=== PATIENT | male | born 1940 | race Caucasian/White ===

== ENCOUNTER → 2018-03-14 12:06 | Outpatient (CLI) | payer OTHER, MEDICARE, SELFPAY ==
[2018-03-14 14:38] LABS: AST(SGOT) 14 U/L (15-37); Alanine Aminotransfer ALT/SGPT 25 U/L (16-61); Albumin, Serum 3.4 g/dL (3.2-5.0); Alkaline Phosphatase 78 U/L (45-117); Anion Gap 10 (5-15); BUN 13 mg/dL (7-18); BUN/Creat Ratio 17.8 RATIO (10-20); Calcium,Total 9.6 mg/dL (8.5-10.1); Chloride 107 mmol/L (98-107); Cholesterol 128 mg/dL (200); Creatinine, Serum 0.73 mg/dL (0.70-1.30); EST Glomerular Filtration Rate 111 mL/min (>60); Est Glom Filt Rate - Afr Amer 135 mL/min (>60); Globulin 3.4 g/dL (2.2-4.2); Glucose 89 mg/dL (74-106); High Density Lipoprotein 45 mg/dL; Potassium 4.2 mmol/L (3.5-5.1); Protein, Total 6.8 g/dL (6.4-8.2); Sodium Level 144 mmol/L (136-145); Thyroid Stim Hormone (TSH) 2.18 uIU/mL (0.358-3.74); Triglycerides 77 mg/dL; Very Low Density Lipoprotein 15 mg/dL (5-40)
== END ==
PROVIDERS: Family Provider Family Medicine; PCP Family Medicine; Visit Provider Family Medicine
DX: E11.9 Type 2 diabetes mellitus without complications (principal)
CPT/HCPCS: 36415; 80053; 80061; 84403; 84443

== ENCOUNTER → 2018-10-31 | Outpatient (CLI) | payer OTHER, MEDICARE, SELFPAY ==
[2018-10-31 13:37] LABS: ALB/GLOB Ratio 1.2 RATIO (0.9-2.4); AST(SGOT) 19 U/L (15-37); Alanine Aminotransfer ALT/SGPT 27 U/L (16-61); Albumin, Serum 3.6 g/dL (3.2-5.0); Alkaline Phosphatase 73 U/L (45-117); Anion Gap 6 (5-15); BUN 11 mg/dL (7-18); BUN/Creat Ratio 16.4 RATIO (10-20); Calcium,Total 9.5 mg/dL (8.5-10.1); Chloride 108 mmol/L (98-107); Cholesterol 112 mg/dL (200); Creatinine, Serum 0.67 mg/dL (0.70-1.30); EST Glomerular Filtration Rate 123 mL/min (>60); Est Glom Filt Rate - Afr Amer 148 mL/min (>60); Globulin 2.9 g/dL (2.2-4.2); Glucose 110 mg/dL (74-106); High Density Lipoprotein 51 mg/dL; Potassium 3.8 mmol/L (3.5-5.1); Protein, Total 6.5 g/dL (6.4-8.2); Sodium Level 142 mmol/L (136-145); Triglycerides 84 mg/dL; Very Low Density Lipoprotein 17 mg/dL (5-40)
== END | disposition home or self-care (01) ==
LOC: MFPLAB 09:38
PROVIDERS: PCP Family Medicine; Visit Provider Family Medicine
DX: E11.9 Type 2 diabetes mellitus without complications (principal)
CPT/HCPCS: 36415; 80053; 80061

== ENCOUNTER → 2019-08-28 | Outpatient (CLI) | payer OTHER, MEDICARE, SELFPAY ==
[2019-08-28 10:51] LABS: ALB/GLOB Ratio 0.9 RATIO (0.9-2.4); AST(SGOT) 14 U/L (15-37); Alanine Aminotransfer ALT/SGPT 29 U/L (16-61); Albumin, Serum 3.4 g/dL (3.2-5.0); Alkaline Phosphatase 75 U/L (45-117); Anion Gap 4 (5-15); BUN 19 mg/dL (7-18); BUN/Creat Ratio 24.6 RATIO (10-20); Calcium,Total 9.7 mg/dL (8.5-10.1); Chloride 107 mmol/L (98-107); Creatinine, Serum 0.77 mg/dL (0.70-1.30); EST Glomerular Filtration Rate 104 mL/min (>60); Est Glom Filt Rate - Afr Amer 126 mL/min (>60); Globulin 3.6 g/dL (2.2-4.2); Glucose 115 mg/dL (74-106); Potassium 4.2 mmol/L (3.5-5.1); Sodium Level 140 mmol/L (136-145); Thyroid Stim Hormone (TSH) 3.25 uIU/mL (0.358-3.74)
== END | disposition home or self-care (01) ==
LOC: MFPLAB 08:45
PROVIDERS: PCP Family Medicine; Referring Provider Family Medicine; Visit Provider Family Medicine
DX: E11.9 Type 2 diabetes mellitus without complications (principal)
CPT/HCPCS: 36415; 80053; 84443

== ENCOUNTER → 2020-04-22 | Outpatient (CLI) | payer OTHER, MEDICARE, SELFPAY ==
[2020-04-22 10:04] LABS: ALB/GLOB Ratio 0.9 RATIO (0.9-2.4); AST(SGOT) 11 U/L (15-37); Alanine Aminotransfer ALT/SGPT 24 U/L (16-61); Albumin, Serum 3.4 g/dL (3.2-5.0); Alkaline Phosphatase 93 U/L (45-117); Anion Gap 8 (5-15); BUN 20 mg/dL (7-18); BUN/Creat Ratio 29.2 RATIO (10-20); Calcium,Total 9.6 mg/dL (8.5-10.1); Chloride 107 mmol/L (98-107); Cholesterol 131 mg/dL (200); Creatinine, Serum 0.68 mg/dL (0.70-1.30); EST Glomerular Filtration Rate 119 mL/min (>60); Est Glom Filt Rate - Afr Amer 144 mL/min (>60); Globulin 3.6 g/dL (2.2-4.2); Glucose 116 mg/dL (74-106); High Density Lipoprotein 61 mg/dL; Sodium Level 141 mmol/L (136-145); Triglycerides 74 mg/dL; Very Low Density Lipoprotein 15 mg/dL (5-40)
== END | disposition home or self-care (01) ==
LOC: MFPLAB 08:19
PROVIDERS: PCP Family Medicine; Visit Provider Family Medicine
DX: E11.9 Type 2 diabetes mellitus without complications (principal)
CPT/HCPCS: 36415; 80053; 80061

== ENCOUNTER → 2020-09-23 09:01 | Outpatient (CLI) | payer OTHER, MEDICARE, SELFPAY ==
[2020-09-23 10:44] LABS: ALB/GLOB Ratio 1.1 RATIO (0.9-2.4); AST(SGOT) 18 U/L (15-37); Alanine Aminotransfer ALT/SGPT 29 U/L (16-61); Albumin, Serum 3.5 g/dL (3.2-5.0); Alkaline Phosphatase 70 U/L (45-117); Anion Gap 7 (5-15); BUN 20 mg/dL (7-18); BUN/Creat Ratio 29.3 RATIO (10-20); Calcium,Total 9.6 mg/dL (8.5-10.1); Chloride 108 mmol/L (98-107); Creatinine, Serum 0.68 mg/dL (0.70-1.30); EST Glomerular Filtration Rate 120 mL/min (>60); Est Glom Filt Rate - Afr Amer 145 mL/min (>60); Globulin 3.3 g/dL (2.2-4.2); Glucose 139 mg/dL (74-106); Potassium 3.8 mmol/L (3.5-5.1); Protein, Total 6.8 g/dL (6.4-8.2); Sodium Level 141 mmol/L (136-145); Thyroid Stim Hormone (TSH) 1.51 uIU/mL (0.358-3.74)
== END ==
PROVIDERS: PCP Family Medicine; Visit Provider Family Medicine
DX: E11.9 Type 2 diabetes mellitus without complications (principal)
CPT/HCPCS: 36415; 80053; 84443

== ENCOUNTER 2021-10-21 09:50 | Outpatient (CLI) | payer OTHER, MEDICARE, SELFPAY ==
[2021-10-21 12:20] LABS: Vitamin B12 455 pg/mL (211-911)
[2021-10-21 12:35] LABS: Hemoglobin A1c 6.4 % (3.8-5.6)
[2021-10-21 12:48] LABS: ALB/GLOB Ratio 1.1 RATIO (0.9-2.4); AST(SGOT) 11 U/L (15-37); Alanine Aminotransfer ALT/SGPT 25 U/L (16-61); Albumin, Serum 3.7 g/dL (3.2-5.0); Alkaline Phosphatase 72 U/L (45-117); Anion Gap 7 (5-15); BUN 15 mg/dL (7-18); BUN/Creat Ratio 19.7 RATIO (10-20); Calcium,Total 10.1 mg/dL (8.5-10.1); Chloride 109 mmol/L (98-107); Creatinine, Serum 0.76 mg/dL (0.70-1.30); EST Glomerular Filtration Rate 105 mL/min (>60); Est Glom Filt Rate - Afr Amer 127 mL/min (>60); Globulin 3.3 g/dL (2.2-4.2); Glucose 116 mg/dL (74-106); Potassium 4.1 mmol/L (3.5-5.1); Sodium Level 140 mmol/L (136-145); Thyroid Stim Hormone (TSH) 1.84 uIU/mL (0.358-3.74)
== END 2021-10-21 23:59 | disposition home or self-care (01) ==
LOC: MFPLAB 09:51 → MTLAB 10:06
PROVIDERS: PCP Family Medicine; Visit Provider Family Medicine
DX: E11.9 Type 2 diabetes mellitus without complications (principal)
CPT/HCPCS: 36415; 80053; 82607; 83036; 84443

== ENCOUNTER → 2022-10-12 | Outpatient (CLI) | payer OTHER, MEDICARE, SELFPAY ==
[2022-10-12 10:16] LABS: ALB/GLOB Ratio 1.1 RATIO (0.9-2.4); AST(SGOT) 15 U/L (15-37); Alanine Aminotransfer ALT/SGPT 25 U/L (16-61); Albumin, Serum 3.5 g/dL (3.2-5.0); Alkaline Phosphatase 73 U/L (45-117); BUN 25 mg/dL (7-18); BUN/Creat Ratio 31.6 RATIO (10-20); Calcium,Total 9.8 mg/dL (8.5-10.1); Creatinine, Serum 0.79 mg/dL (0.70-1.30); EST Glomerular Filtration Rate 100 mL/min (>60); Est Glom Filt Rate - Afr Amer 121 mL/min (>60); Globulin 3.3 g/dL (2.2-4.2); Glucose 123 mg/dL (74-106); Protein, Total 6.8 g/dL (6.4-8.2)
[2022-10-12 10:17] LABS: Anion Gap 0 (5-15); Chloride 108 mmol/L (98-107); Potassium 4.5 mmol/L (3.5-5.1); Sodium Level 136 mmol/L (136-145)
== END | disposition home or self-care (01) ==
LOC: MFPLAB 08:27
PROVIDERS: PCP Family Medicine; Visit Provider Family Medicine
DX: E11.9 Type 2 diabetes mellitus without complications (principal)
CPT/HCPCS: 36415; 80053; 84443

== ENCOUNTER 2022-11-28 21:26 | Emergency (ER) | payer OTHER, MEDICARE, SELFPAY ==
[2022-11-28 21:27] VITALS: BP 184/64; PULSE 58; RESP 16; TEMP 36.6; O2SAT 93; BMI 41.3
--- NOTE | 2022-11-28 21:54 | EDS_ITS ---
HPI History of Present Illness Chief Complaint: Back Informant: patient Onset/Context/Timing Onset: Yesterday Injury: fall Timing: Continuous Quality: Sharp Location: Lumbar Worsened by: improves with Movement and Bending Relieved by: Nothing Associated Symptoms Associated Symptoms: Fever and Constipation; Negative for Numbness, Tingling, Radiation to Right Leg, Radiation to Left Leg, Abdominal Pain, Dysuria, Unable to Ambulate, Unable to Transfer, Urinary Retention, Urinary Incontinence or Fecal Incontinence Narrative Narrative: Patient presents with low back pain that began yesterday after a fall. Patient states he was bending forward when he lost his balance and fell. Patient states he has been falling more frequently over the last few days. Patient states this has been worse whenever he bends forward. Patient states he loses his balance when he bends forward. Patient describes his back pain as sharp and constant. Patient states his back pain is worse with movement and with tensing up. Patient states he is having difficulty moving his bowels due to the pain from tensing up. Patient denies any incontinence of urine or stool. Patient thinks he might of had a fever recently. Patient denies any paresthesias or weakness. Patient denies any saddle anesthesia. Patient denies any radiation of his pain down his lower extremities. [facility] Medical History (Updated 11/28/22 @ 23:[address] Cain Perrin DO) Diabetes mellitus Home Medications hydrocodone-acetaminophen 5-325mg 5mg-325mg 1 tab PO Q6H PRN PRN Pain 3 days #10 TABLETS 11/28/22 [Rx Last Taken Unknown] Allergy/AdvReac Type Severity Reaction Status Date / Time Sulfa (Sulfonamide Allergy Hives Verified 11/28/22 21:30 Antibiotics) Surgical History (Updated 11/28/22 @ 21:[address] Cain Perrin DO) History of surgical amputation of finger of left hand Social History Smoking Status: Never smoker ROS ROS ED Constitutional Constitutional ED: Reports fever(s) and subjective; Denies chills Eyes Eyes: Denies blurry vision or change in vision ENT ENT ED: Denies rhinorrhea or sore throat Cardiovascular Cardiovascular: Denies chest pain or palpitations Respiratory/Chest Respiratory/Chest: Reports cough; Denies dyspnea Gastrointestinal Gastrointestinal: Denies nausea or vomiting Genitourinary Genitourinary ED: Denies dysuria or hematuria Musculoskeletal Musculoskeletal: Reports back pain; Denies neck pain Integumentary Denies abscess or rash Neurologic Neurologic: Reports headache(s); Denies weakness Allergic/Immunologic Allergic/Immunologic ED: Denies mouth swelling or urticaria EXAM Physical Exam Const Vital Signs: 11/28/22 21:27 Temperature 97.8 F Temperature Source Temporal Pulse Rate 58 L Respiratory Rate 16 Blood Pressure 184/64 H Blood Pressure Mean 104 Pulse Ox 93 Oxygen Delivery Method Room Air Positive well nourished, well developed and obese General Appearance ED: well developed and NAD Nutritional Appearance: obese HEENT Reports moist mucous membranes Resp normal respiratory effort and clear to auscultation bilaterally Cardio regular rate and regular rhythm GI normal to inspection, nondistended, normoactive bowel sounds, soft to palpation, non-tender and non-distended Back/Spine Back/Spine Narrative: There is tenderness over the lumbar spine and left lumbar paraspinal muscles. There is mild midline tenderness. There is no bony crepitance or step-off. Range of motion was limited in all motions of the lumbar spine secondary to pain. Strength is 5/5 bilaterally in the lower extremities. There are no sensory deficits noted. Straight leg raises were negative bilaterally. Pedal pulses are equal bilaterally. Capillary refill was less than 2 seconds in all digits. Lumbar Spine / Lower Back: ROM limited and straight leg raise negative bilaterally Extremity Extremity Narrative: There is some dried blood noted over the nailbed of the right great toe. There is mild tenderness over the nail plate of the right great toe. There is no obvious deformity. There is good range of motion of the right great toe. Neuro oriented x3 and no sensory deficits noted Sensorium / Orientation: alert Motor Exam: strength 5/5 throughout MDM MDM MDM Narrative Medical decision making narrative: Differential diagnosis includes lumbar compression fracture, spondylolisthesis, and lumbar strain. X-rays of the lumbar spine will be obtained to assess for fracture and spondylolisthesis. Radiography X-Ray: LS SPine, Read by ED Physician, Read by Radiologist, GUILLERMINA, Spurring and Compression Diagnostic Testing: Clinical Impression(s) from Imaging Studies Lumbar Spine X-Ray 11/28/22 22:25 IMPRESSION: No acute fracture identified. Lumbar compression deformity at L1 and degenerative changes are similar to prior study October 09, 2014. Electronically Signed: Korey Fong MD at 22:44 EDT , X-rays of the lumbar spine were obtained. There are 2 views. On my independent interpretation, there is a mild compression of the L1 vertebral body. There are some degenerative changes noted. Radiologist also interpreted the x-rays and n oted that the compression deformity of L1 was similar to a prior study from 10/09/2014. Treatment and Re-Evaluation Narrative: Patient was given a dose of morphine here. The right great toe was cleaned and dressed with a bacitracin dressing. Patient states he would feel better if he was able to move his bowels. Because of this, patient was given a soapsuds enema here. Patient will be observed until he is able to move his bowels. Patient is comfortable with this plan. Patient was instructed to take [id number] stool softeners and/or laxatives. Patient was given a prescription for a short course of [place] for severe pain. Patient was instructed to start with Tylenol and ibuprofen for his pain. Patient was in structed to follow-up with his primary care physician in 5 to 7 days. Patient understood and was agreeable with the plan. All questions were answered. Discharge Plan Triage Chief Complaint: Back ED Provider: Cain Perrin Dx/Rx/DC Orders Clinical Impression: Low back pain, Constipation Instructions: ED Back Sprain/Strain, ED Constipation (Adult) Prescriptions: New hydrocodone-acetaminophen [hydrocodone-acetaminophen] 5-325 mg tablet 1 tab PO Q6H PRN PRN (Reason: Pain) 3 Days Qty: 10 0RF Primary Care Provider: Sean Freitas Referrals: Sean Freitas MD [Primary Care Provider] - 5-7 Days Disposition Disposition: Home, Self Care
[2022-11-28] MEDS: Morphine 4 MG/ML Syringe IM (22:01)
--- NOTE | 2022-11-28 22:25 | RAD_ITS ---
INDICATION: Injury/Pain EXAMINATION/TECHNIQUE: X-RAY - XR Spine Lumbar 2 or 3 Views COMPARISON: October 09, 2014. FINDINGS: Compression deformity at L1. This appears chronic and is mild to moderate. There may also be some slight vertebral body narrowing at T11 which appears chronic. Slight retrolisthesis of L1 on L2 and L2 on L3. Mild disc narrowing L1/L2 and mild to moderate narrowing L2/L3. Moderate narrowing L4/L5 and L5/S1. Moderate multilevel anterior osteophyte formation is appreciated. There is multilevel facet arthropathy throughout the lumbar spine which probably contributes to bony foraminal narrowing. SI joint degenerative changes are present. Nonspecific bowel gas pattern. A few distended loops of bowel are identified. RAD/Lumbar Spine 2 or 3 Views IMPRESSION: No acute fracture identified. Lumbar compression deformity at L1 and degenerative changes are similar to prior study October 09, 2014. Electronically Signed: Korey Fong MD at 22:44 EDT ,
== END 2022-11-29 03:01 | disposition home or self-care (01) ==
PROVIDERS: Emergency Provider Emergency Medicine; PCP Family Medicine; Referring Provider Emergency Medicine; Visit Provider Emergency Medicine
DX: K59.00 Constipation, unspecified (principal); E11.9 Type 2 diabetes mellitus without complications; E66.9 Obesity, unspecified
CPT/HCPCS: 72100; 96372; 99285

== ENCOUNTER → 2023-10-04 | Outpatient (CLI) | payer OTHER, MEDICARE, SELFPAY ==
[2023-10-04 10:31] LABS: Vitamin B12 519 pg/mL (211-911)
[2023-10-04 10:51] LABS: ALB/GLOB Ratio 1.1 RATIO (0.9-2.4); AST(SGOT) 17 U/L (15-37); Alanine Aminotransfer ALT/SGPT 28 U/L (16-61); Albumin, Serum 3.4 g/dL (3.2-5.0); Alkaline Phosphatase 69 U/L (45-117); Anion Gap 6 (5-15); BUN 20 mg/dL (7-18); BUN/Creat Ratio 26.6 RATIO (10-20); Calcium,Total 9.7 mg/dL (8.5-10.1); Chloride 111 mmol/L (98-107); Cholesterol 135 mg/dL (200); Creatinine, Serum 0.75 mg/dL (0.70-1.30); EST Glomerular Filtration Rate 106 mL/min (>60); Est Glom Filt Rate - Afr Amer 128 mL/min (>60); Globulin 3.2 g/dL (2.2-4.2); Glucose 133 mg/dL (74-106); High Density Lipoprotein 57 mg/dL; Potassium 4.2 mmol/L (3.5-5.1); Protein, Total 6.6 g/dL (6.4-8.2); Sodium Level 142 mmol/L (136-145); Thyroid Stim Hormone (TSH) 2.45 uIU/mL (0.358-3.74); Triglycerides 75 mg/dL; Very Low Density Lipoprotein 15 mg/dL (5-40)
== END | disposition home or self-care (01) ==
LOC: MFPLAB 08:36 → MTLAB 09:01
PROVIDERS: PCP Family Medicine; Referring Provider Family Medicine; Visit Provider Family Medicine
DX: E11.9 Type 2 diabetes mellitus without complications (principal)
CPT/HCPCS: 36415; 80053; 80061; 82607; 84443

== ENCOUNTER → 2024-04-04 | Outpatient (CLI) | payer OTHER, SELFPAY ==
[2024-04-04 10:26] LABS: Cholesterol 126 mg/dL (200); High Density Lipoprotein 57 mg/dL; Triglycerides 72 mg/dL; Very Low Density Lipoprotein 14 mg/dL (5-40)
== END | disposition home or self-care (01) ==
LOC: MFPLAB 08:47
PROVIDERS: PCP Family Medicine; Visit Provider Family Medicine
DX: E11.9 Type 2 diabetes mellitus without complications (principal)
CPT/HCPCS: 36415; 80061

== ENCOUNTER → 2024-06-07 | Outpatient (CLI) | payer OTHER, MEDICARE, SELFPAY ==
[2024-06-07 11:05] LABS: ALB/GLOB Ratio 1.1 RATIO (0.9-2.4); AST(SGOT) 13 U/L (15-37); Alanine Aminotransfer ALT/SGPT 30 U/L (16-61); Albumin, Serum 3.4 g/dL (3.2-5.0); Alkaline Phosphatase 57 U/L (45-117); Anion Gap 3 (5-15); BUN 20 mg/dL (7-18); BUN/Creat Ratio 29.4 RATIO (10-20); Calcium,Total 9.6 mg/dL (8.5-10.1); Chloride 112 mmol/L (98-107); Cholesterol 114 mg/dL (200); Creatinine, Serum 0.68 mg/dL (0.70-1.30); EST Glomerular Filtration Rate 119 mL/min (>60); Est Glom Filt Rate - Afr Amer 144 mL/min (>60); Glucose 100 mg/dL (74-106); High Density Lipoprotein 51 mg/dL; Potassium 3.8 mmol/L (3.5-5.1); Protein, Total 6.4 g/dL (6.4-8.2); Sodium Level 142 mmol/L (136-145); Triglycerides 77 mg/dL; Very Low Density Lipoprotein 15 mg/dL (5-40)
== END | disposition home or self-care (01) ==
LOC: MTLAB 08:56
PROVIDERS: PCP Family Medicine; Referring Provider Family Medicine; Visit Provider Family Medicine
DX: E11.9 Type 2 diabetes mellitus without complications (principal)
CPT/HCPCS: 36415; 80053; 80061

== ENCOUNTER → 2024-11-21 | Outpatient (CLI) | payer MEDICARE, OTHER, SELFPAY ==
[2024-11-21 10:42] LABS: Hemoglobin 14.4 g/dL (13.0-16.5); Mean Corp Hgb Conc 31.3 g/dL (32-36); Mean Corpuscular Hgb 28.9 pg (27.0-32.0); Mean Corpuscular Volume 92.4 fL (80-94); Mean Platelet Vol. 11.2 fl (6.2-12.0); Platelet Count 288 K/mm3 (150-450); RBC Distribution Width CV 14.2 % (11.6-14.6); RBC Distribution Width SD 48.2 fl (35.1-43.9); Red Blood Count 4.98 M/mm3 (4.6-6.2)
[2024-11-21 11:26] LABS: Anion Gap 11 (5-15); BUN 12 mg/dL (4-19); BUN/Creat Ratio 15.9 RATIO (10-20); Calcium,Total 10.5 mg/dL (7.6-11.0); Carbon Dioxide 24.5 mmol/L (21.0-32.0); Chloride 105 mmol/L (98-108); Creatinine, Serum 0.74 mg/dL (0.70-1.20); EST Glomerular Filtration Rate 90 (>60); Glucose 159 mg/dL (70-99); Magnesium 2.2 mg/dL (1.5-2.2); Potassium 4.3 mmol/L (3.3-5.1); Sodium Level 140 mmol/L (133-145); Vitamin B12 799 pg/mL (180-914)
== END | disposition home or self-care (01) ==
LOC: MFPLAB 09:05
PROVIDERS: PCP Family Medicine; Referring Provider Family Medicine; Visit Provider Family Medicine
DX: E11.59 Type 2 diabetes mellitus with other circulatory complications (principal); I48.91 Unspecified atrial fibrillation
CPT/HCPCS: 36415; 80048; 82607; 83735; 84443; 85027

== ENCOUNTER → 2024-12-29 | Outpatient (CLI) | payer MEDICARE, OTHER, SELFPAY ==
--- NOTE | 2024-12-29 13:51 | ECHOD_ITS ---
Reason For Study Reason For Study: ATRIAL FIBRILLATION Procedure This was a 2D Doppler, Color Flow transthoracic echocardiogram. Exam performed in department. Left Ventricle Normal size and thickness. The LV ejection fraction is 60 %. Unable to assess diastolic dysfunction due to arrhythmia. Right Ventricle Normal right ventricle. Atria The left atrium is severely enlarged. The right atrium is mildly enlarged. Mitral Valve Mild mitral annular calcification. Trivial mitral valve insufficiency. Tricuspid Valve Trivial tricuspid valve insufficiency. Right ventricular systolic pressure estimated to be 40 mmHg. Aortic Valve Trisinus/trileaflet aortic valve. Pulmonic Valve The pulmonic valve is not well visualized. Great Vessels Normal sized aortic root. Pericardium/Pleural No pericardial effusion. MMode/2D Measurements & Calculations LVIDd: 5.4 cm IVSd: 1.0 cm Ao root diam: 3.3 cm LVIDs: 3.7 cm LVPWd: 1.0 cm LA dimension: 4.9 cm RVDd: 4.2 cm FS: 31.2 % LAV(MOD-bp): 91.0 ml LVAd ap4: 31.1 cm2 SV(MOD-sp4): 62.7 ml LAV(MOD-bp) Indexed: 40.0 ml/m2 LVLd ap4: 7.8 cm SI(MOD-sp4): 27.6 ml/m2 LAV(MOD-sp2): 87.1 ml EDV(MOD-sp4): 104.2 ml LAV(MOD-sp4): 86.3 ml EDV(sp4-el): 105.5 ml LVAs ap4: 17.6 cm2 LVLs ap4: 6.7 cm ESV(MOD-sp4): 41.6 ml ESV(sp4-el): 39.4 ml EF(MOD-sp4): 60.1 % EF(sp4-el): 62.6 % SV(sp4-el): 66.1 ml LA A4 area: 28.2 cm2 LA dimension(2D): 3.5 cm RA A4 area: 25.6 cm2 TAPSE: 2.1 cm Doppler Measurements & Calculations MV E max cl: 116.1 cm/sec Ao V2 max: 126.0 cm/sec LV V1 max: 102.1 cm/sec Ao max P.4 mmHg LV V1 max P.2 mmHg PA V2 max: 93.6 cm/sec TR max cl: 297.3 cm/sec TR max P.4 mmHg ECHO/Echo Complete Interpretation Summary The LV ejection fraction is 60 %. Unable to assess diastolic dysfunction due to arrhythmia. The left atrium is severely enlarged. The right atrium is mildly enlarged. Mild mitral annular calcification. Right ventricular systolic pressure estimated to be 40 mmHg. Ordering Physician: Trenton Freitas Referring Physician: Trenton Freitas Performed By: Bertha Heath RDCS
== END | disposition home or self-care (01) ==
LOC: CVS 13:38
PROVIDERS: PCP Family Medicine; Referring Provider Family Medicine; Visit Provider Family Medicine
DX: R94.31 Abnormal electrocardiogram [ECG] [EKG] (principal); I48.91 Unspecified atrial fibrillation
CPT/HCPCS: 93306

== ENCOUNTER → 2025-02-02 | Outpatient (CLI) | payer MEDICARE, OTHER, SELFPAY ==
[2025-02-02 13:40] LABS: Hematocrit 43.5 % (40-54); Hemoglobin 14.0 g/dL (13.0-16.5); Mean Corp Hgb Conc 32.2 g/dL (32-36); Mean Corpuscular Volume 91.2 fL (80-94); Mean Platelet Vol. 11.1 fl (6.2-12.0); Platelet Count 263 K/mm3 (150-450); RBC Distribution Width CV 14.1 % (11.6-14.6); RBC Distribution Width SD 47.4 fl (35.1-43.9); Red Blood Count 4.77 M/mm3 (4.6-6.2); White Blood Count 8.4 K/mm3 (4.4-11.0)
[2025-02-02 14:39] LABS: Anion Gap 11 (5-15); BUN 16 mg/dL (4-19); BUN/Creat Ratio 22.9 RATIO (10-20); Calcium,Total 10.1 mg/dL (7.6-11.0); Carbon Dioxide 21.0 mmol/L (21.0-32.0); Chloride 106 mmol/L (98-108); Glucose 95 mg/dL (70-99); Potassium 4.7 mmol/L (3.3-5.1)
== END | disposition home or self-care (01) ==
LOC: LAB 11:34
PROVIDERS: PCP Family Medicine; Referring Provider Internal Medicine Cardiovascular Disease; Visit Provider Internal Medicine Cardiovascular Disease
DX: I10 Essential (primary) hypertension (principal); I48.91 Unspecified atrial fibrillation; R00.1 Bradycardia, unspecified
CPT/HCPCS: 36415; 71046; 80048; 85027

== ENCOUNTER 2025-02-07 13:38 | Observation (INO) | payer MEDICARE, OTHER, SELFPAY ==
[2025-02-05 09:59] LABS: Mucous, Urine 0 SEEN /hpf (<or=2+); Red Blood Cells-Urine 0 SEEN /hpf (0-5)
[2025-02-05 10:46] LABS: Color, Urine Yellow (Yellow); Glucose, Dipstick Normal (Normal); Ketone-Dipstick Negative (Negative); Leukocyte Esterase-Dipstick Negative /ul (Negative); Nitrite-Dipstick Negative (Negative); Occult Blood-Urine Negative /ul (Negative); Protein-Dipstick 15 mg/dl (Negative); Specific Gravity, Urine 1.020 (1.002-1.030); Urine Bilirubin Dipstick Negative (Negative)
[2025-02-05 10:57] LABS: Squamous Epithelial Cells - UA 0-5 SEEN /hpf (0-5)
[2025-02-06 08:36] VITALS: BMI 36.9
[2025-02-07] VITALS (13 sets, daily range): BP systolic 114–149; BP diastolic 49–81; PULSE 69–74; RESP 16–22; TEMP 36.2–36.6; O2SAT 92–99
[2025-02-07] MEDS: Budesonide Respules 0.5 MG/2 ML AMPUL.NEB. INHALATION (19:55)
[2025-02-07] MEDS: Albuterol 2.5 MG/3 ML VIAL.NEB. INHALATION (19:55)
[2025-02-08 03:34] VITALS: BP 128/70; PULSE 70; RESP 18; TEMP 36.1; O2SAT 98
--- NOTE | 2025-02-08 04:50 | RAD_ITS ---
PROCEDURE: CHEST 3 VIEW 02/08/2025 REASON FOR EXAM: POST PERMANENT ICD/PACEMAKER TECHNIQUE: CHEST 3 VIEW COMPARISON: 02/02/2025 FINDINGS: Rotated and lordotic patient. Unremarkable pacer. Upper limits of normal heart size. Calcified aorta. Limited retrocardiac visibility. Well inflated and clear right lung. RAD/Chest 3 View IMPRESSION: No definite acute chest findings. Limited left base visibility. Unremarkable pacer, without pneumothorax. Reading Location: [facility]
[2025-02-08] MEDS: Budesonide Respules 0.5 MG/2 ML AMPUL.NEB. INHALATION (07:27)
[2025-02-08] MEDS: Albuterol 2.5 MG/3 ML VIAL.NEB. INHALATION (07:27)
[2025-02-08 07:29] VITALS: PULSE 71; RESP 16
--- NOTE | 2025-02-08 08:36 | PN.CARD_ITS ---
Subjective Subjective Patient seen and evaluated. Doing well no complaints Objective Data Vital Signs: Vital Signs Temp Pulse Resp BP Pulse Ox O2 Del Method 96.9 F L 71 16 128/70 H 98 CPAP 02/08/25 03:34 02/08/25 07:29 02/08/25 07:29 02/08/25 03:34 02/08/25 03:34 02/08/25 03:34 Oxygen Delivery Method CPAP Weight: 250 lb Body Mass Index (BMI) 36.9 Intake & Output: Intake and Output for Last 24 Hours 02/06/25 02/07/25 02/08/25 23:59 23:59 23:59 Intake Total 240 / 240 Output Total 450 / 450 600 / 600 Balance -210 / -210 -600 / -600 Cardiology Labs/Tests Rhythm: EKG: ECHO: Stress Test: Cardiac Cath: PCI: CT Surgery: Holter monitor: EPS: PPM: CXR: Chest CT Scan: Radiography Diagnostic Testing: Radiology Impression Chest X-Ray 02/08/25 04:50 IMPRESSION: No definite acute chest findings. Limited left base visibility. Unremarkable pacer, without pneumothorax. Reading Location: [place] [id number] Physical Exam Const alert, oriented x3 and no apparent distress General Appearance: cooperative HEENT hearing grossly normal bilaterally Head and Scalp: atraumatic Eyes EOMs intact bilaterally Neck General: normal visual inspection Chest inspection of chest normal and palpation of chest normal Resp normal respiratory effort Auscultation: clear to auscultation bilaterally Cardio regular rate, regular rhythm, S1 normal heart sound and S2 normal heart sound Jugular Venous Distention: JVD GI normal to inspection, nondistended, normoactive bowel sounds Extremity normal capillary refill and no pedal edema Peripheral Pulses: Yes pulses 2+ throughout and femoral pulses present Skin no rashes or lesions noted Neuro oriented x3 and CN's II-XII intact bilaterally Psych Appearance: grossly normal and appropriate Assessment & Plan Assessment/Plan (1) Sick sinus syndrome: PLAN: Patient has a history of sick sinus syndrome (2) S/P cardiac pacemaker procedure: PLAN: Patient is status post permanent pacemaker implantation. Pacemaker interrogation today demonstrated good numbers and chest x-ray is unremarkable. Patient to be discharged for outpatient follow-up.
--- NOTE | 2025-02-08 08:42 | DCINST_ITS ---
Discharge Instructions DC O2, CPAP, BIPAP needs Home O2 Discharge instructions: No Dressing / Incision Discharge Activity: May Not Drive May shower in (days): 2 Additional Activity Instructions:: May shower or bathe on [day 3]. Do not scrub the incision or soak in the tub. Just wash with soap and let the water run over the incision. Gently pat dry with towel. Medications: Take your pain medication as directed. Refer to your discharge instruction sheet for a list of medications you are to take. Dressing / Incision Call your doctor if your incision/area has: Continuous Slow Oozing, Sudden Increased Bleeding, Increased Pain/ Swelling, Increased Redness, Foul Smelling Discharge and Swelling at the incision site Call your doctor if you observe: Fever of 101 or Higher, Shortness of breath, Dizziness, Fainting spells, Swelling in the ankles, Chest pain, Prolonged hiccupping and Increased palpitations (irregular heartbeat) Suture Line Care: Avoid Pulling/Pushing and Avoid Pinching/Bending Remove Dressing in: 3 days Cleanse incision/area with: Keep Dressing Clean & Dry Additional Dressing/Incision Instructions:: When dressing is removed, wash and dry incision. Keep covered with a light bandage if it is rubbing against your clothing. Do not cover the incision with an airtight bandage. Change the bandage daily. Do not remove steri strips. The strips will fall off on their own. Follow Up Care Please Follow Up With: Jesus Li MD When: Follow-up in the office February 14 at 9 AM. Test Results: Test results from this visit will be discussed in further detail at your follow- up appointment, if applicable. Discharge Plan Admission Admit Date/Time: 02/07/25 13:38 Attending Provider: Jesus Li Primary Care Provider: Trenton Freitas Discharge Orders/Prescriptions Prescriptions: No Action montelukast 10 mg tablet 10 mg PO QDAY fluticasone propion-salmeterol [Advair Diskus] 100-50 mcg/dose blister with device 1 inh inhalation BID losartan 25 mg tablet 25 mg PO QDAY atorvastatin 10 mg tablet 10 mg PO QDAY Eliquis 5 mg tablet 5 mg PO BID pioglitazone [Actos] 45 mg tablet 45 mg PO QDAY Ozempic 1 mg/dose (4 mg/3 mL) pen injector 1 mg subcut QWEEK Referrals / Follow Up: Trenton Freitas MD [Primary Care Provider] -
--- NOTE | 2025-02-08 09:17 | CASEMGMT ---
Patient has order for discharge. RN CM in to discuss needs at discharge. Patient denies needs or help at discharge. Patient had no further questions or concerns.
[2025-02-08 09:46] VITALS: BP 126/67; PULSE 69; RESP 18; TEMP 36.6; O2SAT 95
--- NOTE | 2025-02-12 09:47 | CL.IE_ITS ---
Patient: DASIA GALAVIZ Study Date: 02/07/2025 Performing: Jesus Li MD : 1940 Age: 84 Gender: male PROCEDURES PERFORMED [id number]-([id number])INITIAL PACER INSERT+DUAL LEADS INDICATIONS Atrial fibrillation and complete heart block PROCEDURE DETAILS The patient was brought to the Catheterization Lab in the postabsorptive nonsedated state. Informed consent was obtained prior to the procedure. Local anesthetic was given subcutaneously to the left subclavian region with Lidocaine 2%. Access was achieved and a guidewire was advanced into the left subclavian vein. Incision was made to the left subclavicular area. PPM ventricular lead was inserted / positioned to right ventricular apex. PPM ventricular lead testing performed. PPM ventricular lead testing performed. PPM atrial lead was inserted / positioned to the right atrial appendage. PPM atrial lead testing performed. The Ventricular PM lead sutured in place with 2-0 Silk. The Atrial lead sutured in place with 2-0 Silk. PPM generator was attached to the lead(s) and inserted into the pocket. Device pocket was irrigated with antibiotic. Device pocket was irrigated with antibiotic. PPM generator was attached to the lead(s) and inserted into the pocket. Subcutaneous closure was completed with 3-0 Vicryl. Skin closure was completed with 4-0 Vicryl. The patient tolerated the procedure well. Estimated Blood Loss: 15 ml's IMPLANTED / EX-PLANTED DEVICES IMPLANTED DEVICE(S): PPM Ventricular lead - Cable Installer Repairer Helper: [employer], Model # Tendril STS , Serial # [id number] PPM Atrial lead - Cable Installer Repairer Helper: [employer], Model # Tendril STS , Serial # [id number] PPM Generator - Cable Installer Repairer Helper: [employer], Model # ASSURITY MRI , Serial # [id number] DEVICE PARAMETERS ATRIAL LEAD PARAMETERS: P wave- 0.9 (mV) threshold- AF (V) impedence- 460 (OHMS) VENTRICULAR LEAD PARAMETERS: R wave- 5 (mV) threshold- 0.75 (V) impedence- 1075 (OHMS) DEVICE PARAMETERS: Mode- DDD Lower rate- 60 Upper rate- 130 CONCLUSIONS / RECOMMENDATIONS Device Conclusions: Successful implantation of a dual chamber pacemaker Device Recommendations: Follow up with Primary Care Physician PROCEDURE MEDICATIONS Fentanyl 50 mcg IV Versed 1 mg IV Versed 1 mg IV Fentanyl 25 mcg IV Oxygen: 2 L/min via nasal cannula Antibiotic given in appropriate timeframe. Ancef 2 Gm IV @ 02/07/2025 11:55:58 Signed By Jesus Li MD On 02/07/2025 13:35:43 Jseus Li MD
== END 2025-02-08 10:15 | disposition home or self-care (01) ==
LOC: PCU 13:53
PROVIDERS: Admitting Provider Internal Medicine Cardiovascular Disease; PCP Family Medicine; Referring Provider Internal Medicine Cardiovascular Disease; Visit Provider Internal Medicine Cardiovascular Disease
DX: Z45.018 Encounter for adjustment and management of other part of cardiac pacemaker (principal); I48.91 Unspecified atrial fibrillation; I49.5 Sick sinus syndrome; I44.2 Atrioventricular block, complete; E11.9 Type 2 diabetes mellitus without complications; Z79.899 Other long term (current) drug therapy; Z79.51 Long term (current) use of inhaled steroids; Z79.01 Long term (current) use of anticoagulants; Z79.85 Long-term (current) use of injectable non-insulin antidiabetic drugs; E78.5 Hyperlipidemia, unspecified; I10 Essential (primary) hypertension; R00.1 Bradycardia, unspecified
CPT/HCPCS: 33208; 71047; 81001; 94640; 99152; 99153; 99221; C1894; G0378

== ENCOUNTER → 2025-05-21 | Outpatient (CLI) | payer MEDICARE, OTHER, SELFPAY ==
[2025-05-21 11:01] LABS: Creatinine, Urine (random) 110.00 mg/dL (39.00-259.00); Microalbumin,Random Urine 22.0 mg/L (<20 mg/L)
== END | disposition home or self-care (01) ==
LOC: LABSPEC 09:10
PROVIDERS: PCP Family Medicine; Visit Provider Family Medicine
DX: Z00.00 Encounter for general adult medical examination without abnormal findings (principal)
CPT/HCPCS: 82043; 82570